=== PATIENT | male | born 1960 | race Caucasian/White ===

== ENCOUNTER 2020-04-14 10:53 | Outpatient (CLI) | payer OTHER ==
[2020-04-14 12:28] VITALS: BP 134/81
--- NOTE | 2020-04-14 12:28 | SLEEP CARE CONSULTATION ---
Information from patient questionnaire entered by Tejal Roberts. I have reviewed and concur with the information entered by Tejal Roberts. This document represents the service I personally performed and the decisions made by me, Criss Jackson ARNP. History of Present Illness Service Date and Time: 04/14/2020 1053 Reason for Visit: New patient Chief Complaint: reports: Snoring, Excessive daytime sleepiness (will fall asleep easily when quiet and/or warm). denies: Unrefreshed sleep, Observed pauses in breathing, Fatigue, Frequent awakenings at night Date of Onset: 10 plus years Usual bedtime: 8-9 pm Time it takes to fall asleep: almost immediate Snores at night: Yes Observed to quit breathing while asleep: No Sleeps alone due to snoring: Yes Number of times waking at night: 1-2 Reasons for waking at night: reports: Snoring, Bathroom. denies: Choking, Gasping for air Toss, Turn, or Twitch while sleeping: No Recalls having dreams: Yes Usually gets out of bed at: 4 am Feels refreshed in the morning: Yes (mostly) Morning headache: Yes (sometimes; 1 time a month) Sleepy or fatigued during the day: Yes (sometimes) Ever fallen asleep while driving: No Takes day naps: Yes (daily if able, 10-15 minutes) Dreams during day naps: Yes Prior sleep studies: No Additional HPI information: I had the pleasure of seeing TINO SUBRAMANIAN today regarding the possibility of him having a sleep disorder. His current complaints are snoring and daytime sleepiness/tiredness. He states he usually wakes up feeling rested but once a month he has woken up with a headache and not feeling very well. He states most days he will take a 15-10 minute nap. He can fall asleep "almost immediately". He states if he sits quietly or tries to read he has a moderate chance of nodding off. He is here because his has encouraged him to get his snoring checked out. She does not always sleep in same bed because of his snoring. - Parasomnia Symptoms Ever been unable to move upon waking from sleep: No Walks in sleep: No Talks in sleep: No Ever acted out dreams in sleep: No Ever felt weak in the knees when startled or emotional: No Bothered by creepy, crawly, restless sensations in legs: No Problems with memory or concentration: No (I don't think so) Subjective Initial [place] Sleepiness Scale score: 9 (in 2020) Past Medical History Past Medical History: reports: Other (Prostate cancer 1 year ago; prostatectomy about 8 months ago). 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 Patient is and lives in [place]. Have you smoked in the past 12 months: No Cigarettes per day (20/pack): 20 Years of smokin (5-10 years) Quit date: 1994 Smoking Pack Years: 8.0 Alcohol use: No Caffeine use: Yes Caffeine amount and frequency: a lot; he is constant drinking something all day long Family History Family history of sleep disordered breathing: No Allergies and Home Medications Drug allergies reviewed: Yes (NKDA) Home medication list reviewed: Yes Allergy and home medication list: Cialis Multivitamin Review of Systems Weight gain over past 5 years: 10 Cardiovascular: denies: high blood pressure Gastrointestinal: denies: heartburn Neurological: denies: headaches Psychiatric: denies: anxiety, depression, mood disorder, claustrophobia Ear/Nose/Throat: reports: nasal congestion (low level), wisdom teeth removed. denies: sinus problems, dry mouth/throat, tonsillectomy Musculoskeletal: reports: back pain Immunologic: denies: allergies to food or environment Physical Exam Blood Pressure: 134/81 Cuff size: wrist Heart Rate: 53 O2 Saturation: 98 Height: 6 ft 2 in Weight: 223 lb Body Mass Index: 28.6 BMI Classification: Overweight Neck circumference: 16 (inches) Nostrils: patent to airflow Turbinates: swollen Septum: midline Mouth and throat: narrow oropharynx Soft palate: long Hard palate: normal Uvula: long Uvula visualization: 50% Mallampati Class II Tongue: enlarged in size with teeth harris on lateral edges Tonsils: 1+ Neck: normal w/o lymphadenopathy or thyromegaly Heart: regular rate and rhythm Lungs: clear bilaterally Impression and Plan 1. Suspected Obstructive Sleep Apnea-Hypopnea Syndrome, as suggested by a history of loud and irregular snoring, and excessive daytime sleepiness. I reviewed with the patient that a narrow oropharynx and obesity are common predisposing factors for obstructive sleep apnea-hypopnea syndrome. I recommend proceeding to polysomnography to confirm the diagnosis and to assess severity. If the patient has significant sleep disordered breathing, a manual CPAP titration study will also be performed to find the optimal treatment pressure. I informed the patient of what the sleep studies involve and after some discussion, obtained agreement to proceed. The pathophysiology of obstructive sleep apnea-hypopnea syndrome was discussed with the patient and health risks of cardiovascular and cerebrovascular disease if not treated. AAS brochure for obstructive sleep apnea-hypopnea syndrome given and reviewed. Risks of drowsy driving discussed in detail and patient advised to avoid long distance driving and to side puller at the first sign of drowsiness. Patient agreed to plan. * Schedule polysomnography +- manual CPAP titration study and return in 1-2 weeks after the study to discuss result and initiate therapy. * Avoid long distance driving or driving when feeling sleepy. * Avoid alcohol, sedative and muscle relaxant around bedtime. * Attempt to lose weight. * Review instructions provided by trained office staff on how to prepare for the sleep study. * Return for follow-up after sleep study completed. Counseling Topics: Weight loss health impact Visit Type: In Office Time Spent with Patient (minutes): 30 Provider Statement: I spent 100% of the Face to Face Visit with the patient with greater than 50% spent counseling the patient and coordination of care.
== END 2020-04-14 10:54 | disposition home or self-care (01) ==
LOC: SC 10:53
PROVIDERS: ATTEND Nurse Practitioner Family
DX: R06.83 Snoring (principal); E66.3 Overweight; G47.10 Hypersomnia, unspecified; Z68.28 Body mass index [BMI] 28.0-28.9, adult; Z87.891 Personal history of nicotine dependence
CPT/HCPCS: 99203; 99212

== ENCOUNTER 2020-06-22 14:18 | Outpatient (CLI) | payer OTHER | END 2020-06-22 14:19 | disposition home or self-care (01) | LOC: SC 14:18 | PROVIDERS: ATTEND Nurse Practitioner Family | DX: E66.3 Overweight (principal); R09.02 Hypoxemia; Z68.28 Body mass index [BMI] 28.0-28.9, adult | CPT/HCPCS: 95806 ==

== ENCOUNTER 2020-07-13 10:57 | Outpatient (CLI) | payer OTHER ==
--- NOTE | 2020-07-13 11:24 | SLEEP CARE CONSULTATION ---
Information from patient questionnaire entered by Tejal Roberts. I have reviewed and concur with the information entered by Tejal Roberts. This document represents the service I personally performed and the decisions made by , Criss Jackson ARNP. History of Present Illness Service Date and Time: 07/13/2020 1057 Initial [place] Sleepiness Scale score: 9 (in 2019) Current [place] Sleepiness Scale score: 10 Additional HPI information: TINO SUBRAMANIAN returns for follow up and results of the recently performed home sleep study. The patient was informed of the following findings: no significant sleep disordered breathing with an average AHI of 3.0, a supine AHI of 9.4 and vince oxygen saturation of 88%. I explained the pathophysiology behind obstructive sleep apnea. Patient does not have sleep apnea and was advised how weight gain could increase the risk of developing sleep apnea in the future. I strongly encouraged the patient to lose weight. Patient does not have significant sleep disordered breathing but has elevated AHI in supine position so advised positional therapy. Methods to achieve positional management therapy were discussed; such as, positioning with pillows, wearing a T-shirt with tennis balls sewn into the back, Rematee shirt, Zzomba belt and Slumberbump belt. Pamphlets provided on how to obtain the commercially available products. Patient has moderate snoring. Snoring can be reduced by weight loss. Weight loss is best achieved with diet consult. Patient instructed to contact PCP for referral. Snoring can also be treated with an oral appliance from a dentist. Advised to check insurance coverage. In addition, an ENT evaluation can be do to see if other treatment is indicated. Patient counseled not drink alcohol less than 4 hours before bedtime as it can increase snoring and apnea. \ Patient was cautioned about risks of drowsy driving until sleepiness symptoms resolve. Sleep Study - Results Type of Sleep Study: Home sleep study Prior sleep studies: No Polysomnography/Home Sleep Study results: Physician Impression: The quality of the study is good. The length of the study is adequate (> 240 minutes). Please also see the tabulated and graphic data. 1. No significant sleep-disordered breathing, with an AHI of 3.0/hr and vince SaO2 of 88%. During the study, the patient had 12 apneas (12 obstructive, 0 central, 0 mixed) and 12 hypopneas. The longest episode lasted 45.5 seconds. The few respiratory events occurred almost exclusively during supine sleep (supine AHI was 9.4 and non-supine, 1.51). 2. Hypoxemia (ICD-10 R09.02), minimal,, with the lowest oxygen saturation of 88 % and 5.5 minutes with SaO2 under 90%. Baseline oxygen saturation was normal (Average oxygen saturation was 93%). Recommendation: No treatment is necessary. However, because the supine AHI was elevated at 9.4, the patient should avoid sleeping supine. Allergies and Home Medications Home medication list reviewed: Yes (no new meds) Review of Systems Review of systems same as previous: Yes (no changes) Physical Exam Heart Rate: 53 O2 Saturation: 96 Height: 6 ft 2 in Weight: 226 lb Body Mass Index: 29.0 BMI Classification: Overweight Impression and Plan Snoring but no significant sleep disordered breathing. Patient advised that often weight loss will reduce snoring as well as apnea risk. An oral appliance can also be used for snoring. This would require a dental consultation. Patient cautioned not to use other online appliances as can cause bite issues. A list of accredited dentists in area and one local dentist who makes oral appliances given. Patient is advised to check if insurance will cover. An ENT consult can also be helpful to determine if any other treatment is an option. Since patient does have mild obstructive apnea in supine position, patient advised to try avoid sleeping on his back and he agreed with plan. He was also advised to tell his doctors prior to any procedures involving general anesthesia of his supine mild apnea which can cause complications. He voiced understanding. * Attempt to lose weight * Avoid alcohol consumption near bedtime * The patient is cautioned about driving until sleepiness is completely resolved. * Return in as needed for follow up. Counseling Topics: Weight loss health impact Visit Type: In Office Time Spent with Patient (minutes): 15 Provider Statement: I spent 100% of the Face to Face Visit with the patient with greater than 50% spent counseling the patient and coordination of care.
== END 2020-07-13 10:58 | disposition home or self-care (01) ==
LOC: SC 10:57
PROVIDERS: ATTEND Nurse Practitioner Family
DX: G47.10 Hypersomnia, unspecified (principal); R06.83 Snoring; E66.3 Overweight; Z68.28 Body mass index [BMI] 28.0-28.9, adult
CPT/HCPCS: 99212